=== PATIENT | male | born 1985 | race Caucasian/White ===

== ENCOUNTER 2018-03-07 14:59 | Emergency (ER) | payer OTHER ==
[~2018-03-07] VITALS: Ht 177.8 cm; Wt 108.9 kg
== END 2018-03-07 18:36 | disposition home or self-care (01) ==
LOC: ER 14:59
DX: S80.11XA Contusion of right lower leg, initial encounter (principal); M79.604 Pain in right leg; W21.89XA Striking against or struck by other sports equipment, initial encounter; Y93.67 Activity, basketball; Y92.89 Other specified places as the place of occurrence of the external cause; Y99.8 Other external cause status

== ENCOUNTER 2020-02-12 14:57 | Emergency (ER) | payer OTHER ==
[~2020-02-12] VITALS: Ht 180.3 cm; Wt 113.4 kg
== END 2020-02-12 19:48 | disposition home or self-care (01) ==
LOC: ER 14:57
DX: R07.0 Pain in throat (principal); E03.8 Other specified hypothyroidism

== ENCOUNTER 2021-07-01 12:27 | Outpatient (CLI) | payer OTHER | END 2021-07-01 12:30 | disposition home or self-care (01) | LOC: SONOGRAMA 12:27 | PROVIDERS: ATTEND Family Medicine | DX: N45.1 Epididymitis (principal); I86.1 Scrotal varices ==

== ENCOUNTER 2021-07-05 05:34 | Day surgery (SDC) | payer OTHER | END 2021-07-05 13:05 | disposition home or self-care (01) | LOC: CIR.AMB 05:34 | PROVIDERS: ATTEND Colon & Rectal Surgery | DX: L05.91 Pilonidal cyst without abscess (principal); Z20.822 Contact with and (suspected) exposure to COVID-19 ==